=== PATIENT | male | born 1960 | race African-American/Black ===

== ENCOUNTER 2018-05-27 11:18 | Inpatient (IN) | payer OTHER ==
--- NOTE | 2018-05-27 12:43 | HP ---
CIWA Score - CIWA Score Nausea/Vomitin-Mild Nausea/No Vomiting Muscle Tremors: 4-Moderate,w/Arms Extend Anxiety: 4-Mod. Anxious/Guarded Agitation: 4-Moderately Restless Paroxysmal Sweats: 1-Minimal Palms Moist Orientation: 0-Oriented Tacttile Disturbances: 1-Very Mild Itch/Numbness Auditory Disturbances: 0-None Visual Disturbances: 0-None Headache: 1-Very Mild CIWA-Ar Total Score: 16 Admission [facility] - HPI Chief Complaint: alcohol withdrawal x Allergies/Adverse Reactions: Allergies Allergy/AdvReac Type Severity Reaction Status Date / Time No Known Drug Allergies Allergy Verified 05/27/18 12:42 NKDA Allergy Uncoded 05/27/18 12:42 History of Present Illness: 57 years old male with long history of alcohol dependence has depression and anxiety fell 05/24/18 due to alcohol intoxification right knee swell and pain ambulating steady gait 05/26/18 went to [facility] for detox forgot ID return home comes to [facility] for alcohol detox denies medical issue is admitted to detox Exam Limitations: No Limitations - Ebola screening Have you traveled outside of the country in the last 21 days: No Have you had contact with anyone from an Ebola affected area: No Have you been sick,other than usual withdrawal symptoms: No Do you have a fever: No - Review of Systems Constitutional: Loss of Appetite, Changes in sleep, Unintentional Wgt. Loss, Unexplained wgt Loss EENT: reports: Blurred Vision (need eye glasses) Respiratory: reports: No Symptoms reported Cardiac: reports: No Symptoms Reported GI: reports: Nausea, Poor Appetite, Poor Fluid Intake, Abdominal cramping : reports: No Symptoms Reported Musculoskeletal: reports: Joint Pain (right knee) Integumentary: reports: Rash (fungal feet) Neuro: reports: Tremors Endocrine: reports: No Symptoms Reported Hematology: reports: No Symptoms Reported Psychiatric: reports: Judgement Intact, Orientated x3, Anxious, Depressed Other Systems: Reviewed and Negative Patient History - Patient Medical History Hx Anemia: No Hx Asthma: No Hx Chronic Obstructive Pulmonary Disease (COPD): No Hx Cancer: No Hx Cardiac Disorders: No Hx Congestive Heart Failure: No Hx Hypertension: No Hx Hypercholesterolemia: No Hx Pacemaker: No HX Cerebrovascular Accident: No Hx Seizures: No Hx Dementia: No Hx Diabetes: No Hx Gastrointestinal Disorders: No Hx Liver Disease: No Hx Genitourinary Disorders: No Hx Sexually Transmitted Disorders: No Hx Renal Disease (ESRD): No Hx Thyroid Disease: No Hx Human Immunodeficiency Virus (HIV): No Hx Hepatitis C: No Hx Depression: Yes Hx Suicide Attempt: Yes (REMOTE) Hx Bipolar Disorder: No Hx Schizophrenia: No - Patient Surgical History Past Surgical History: No Hx Neurologic Surgery: No Hx Cataract Extraction: No Hx Cardiac Surgery: No Hx Lung Surgery: No Hx Breast Surgery: No Hx Breast Biopsy: No Hx Abdominal Surgery: No Hx Appendectomy: No Hx Cholecystectomy: No Hx Genitourinary Surgery: No Hx Orthopedic Surgery: No Other Surgical History: hemorrhoidectomy age 31 - PPD History Previous Implant?: Yes Documented Results: Positive w/o proof Implanted On Prior [facility] Admission?: No PPD to be Administered?: No - Smoking Cessation Smoking history: Former smoker Have you smoked in the past 12 months: No Aproximately how many cigarettes per day: 0 If you are a former smoker, when did you quit?: last cigarette smoke 11/2017 Cigars Per Day: 0 Hx Chewing Tobacco Use: No Initiated information on smoking cessation: No 'Breaking Loose' booklet given: 05/27/18 - Substance & Tx. History Hx Alcohol Use: Yes Substance Use Type: Cocaine, Tranquilizers Hx Substance Use Treatment: Yes ([facility]) Family Disease History - Family Disease History Family Disease History: Diabetes: Grandparent, Heart Disease: Father () Admission Physical Exam [facility] - Physical General Appearance: Yes: Appropriately Dressed, Mild Distress, Alcohol on Breath , Thin, Tremorous, Irritable, Sweating, Anxious HEENTM: Yes: Hearing grossly Normal, Normocephalic, Normal Voice Respiratory: Yes: Chest Non-Tender, Lungs Clear, Normal Breath Sounds, No Respiratory Distress, No Accessory Muscle Use Neck: Yes: Supple, Trachea in good position Breast: Yes: Breasts Symetrical, No Discharge Cardiology: Yes: Regular Rhythm, Regular Rate, S1, S2 Abdominal: Yes: Normal Bowel Sounds, Non Tender, Flat, Soft Genitourinary: Yes: Within Normal Limits Back: Yes: Normal Inspection Musculoskeletal: Yes: full range of Motion, Gait Steady, Muscle Pain (right knee ) Extremities: Yes: Normal Inspection, Normal Range of Motion, Non-Tender, Tremors Neurological: Yes: Fully Oriented, Alert, Motor Strength 5/5, Normal Response, Depressed Affect Integumentary: Yes: Warm Lymphatic: Yes: Within Normal Limits - Diagnostic (1) Positive PPD, treated Current Visit: Yes Status: Resolved (2) Dry skin Current Visit: Yes Status: Chronic (3) Fungal infection of foot Current Visit: Yes Status: Chronic Qualifiers: Laterality: bilateral Qualified Code(s): B35.3 - Tinea pedis (4) Alcohol dependence with uncomplicated withdrawal Current Visit: Yes Status: Acute Cleared for Admission [facility] - Detox or Rehab [facility] Level of Care: Medically Managed Detox Regimen/Protocol: Librium [facility] Breath Alcohol Content Breath Alcohol Content: 0 Urine Drug Screen - Control Is Test Valid: Yes
[2018-05-27] MEDS ORDERED: MAGNESIUM HYDROX 2400MG/30ML ORAL SUSPENSION 30 ML CUP PO PRN (12:49)
[2018-05-27] MEDS ORDERED: chlordiazePOXIDE HCL 25 MG CAPSULE PO PRN (12:49)
[2018-05-27] MEDS ORDERED: MAG HYDROX/AL HYDROX/SIMETH 30 ML UNIT-DOSE CUP PO PRN (12:49)
[2018-05-27] MEDS ORDERED: LOPERAMIDE HCL 2 MG CAPSULE PO PRN (12:49)
[2018-05-27] MEDS ORDERED: guaiFENesin/D-METHORPHAN HB 10 ML UNIT-DOSE CUPS PO PRN (12:49)
[2018-05-27] MEDS ORDERED: MENTHOL/PHENOL 1 EACH UD MM PRN (12:49)
[2018-05-27] MEDS ORDERED: MAGNESIUM CITRATE 300 ML BOTTLE PO PRN (12:49)
[2018-05-27] MEDS ORDERED: P-EPHED 60MG/TRIPROLIDI 2.5MG TABLET PO PRN (12:49)
[2018-05-27] MEDS ORDERED: ACETAMINOPHEN 325 MG TABLET (FP) PO PRN (12:49)
[2018-05-27 13:00] VITALS: BMI 22.6
[2018-05-27] MEDS: METHYL SALICYLATE/MENTHOL OINT 30 GM TUBE TP SCH ×2 (15:55→22:07)
[2018-05-27] MEDS: CLOTRIMAZOLE 1% CREAM 15 GM TUBE TP SCH ×2 (15:55→22:07)
[2018-05-27] MEDS: chlordiazePOXIDE HCL 25 MG CAPSULE PO SCH ×2 (17:18→22:06)
[2018-05-27 21:10] LABS: URINE APPEARANCE CLEAR; URINE BILIRUBIN NEGATIVE (<2.0 mg/dL); URINE COLOR YELLOW; URINE GLUCOSE (UA) NEGATIVE (NEGATIVE); URINE KETONE NEGATIVE (NEGATIVE); URINE LEUK ESTERASE NEGATIVE (NEGATIVE); URINE NITRITE NEGATIVE (NEGATIVE); URINE PROTEIN NEGATIVE (NEGATIVE); URINE UROBILINOGEN 4.0 E.U/dl mg/dL (0.2-1.0)
[2018-05-27] MEDS: MINERAL OIL/PETROLAT/WATER TOPICAL CREAM 113 GM JAR TP SCH (22:06)
[2018-05-27] MEDS: THIAMINE HCL 100 MG TABLET (FP) PO SCH (22:06)
[2018-05-27] MEDS: MELATONIN 5 MG TABLETS PO PRN (22:07)
[2018-05-28] MEDS: chlordiazePOXIDE HCL 25 MG CAPSULE PO SCH ×4 (05:40→22:41)
--- NOTE | 2018-05-28 09:18 | CONSULT ---
[facility] Psychiatric Consult - Data Date of interview: 05/28/18 Admission source: [facility] Identifying data: Patient is a 57 year old single male, father of one, unemployed (denies receiving financial assistance), and currently homeless. This is one of multiple admissions for patient. Pt. admitted for alcohol dependence. Substance Abuse History: Smoking Cessation. Smoking history: Former smoker. Have you smoked in the past 12 months: No. Aproximately how many cigarettes per day: 0. If you are a former smoker, when did you quit?: last cigarette smoke 11/2017. Cigars Per Day: 0. Hx Chewing Tobacco Use: No. Initiated information on smoking cessation: No. 'Breaking Loose' booklet given: . - Substance & Tx. History. Hx Alcohol Use: Yes. Substance Use Type: Cocaine, Tranquilizers. Hx Substance Use Treatment: Yes (2015 [facility]) Medical History: hemorrhoidectomy age 31 Psychiatric History: Patient denies h/o psychiatric hospitalization, and outpatient care. Patient reports nonadherence to OPD. States he was tried on lexapro and trazodone but discontined medication on his own. As per Dr. Kunz entry on 01/20/16 patient reported h/o two psychiatric hospitalization at [facility] and [facility]. Pt. requesting trazodone for insomnia. Physical/Sexual Abuse/Trauma History: Denies. Mental Status Exam - Mental Status Exam Alert and Oriented to: Time, Place, Person Cognitive Function: Good Patient Appearance: Well Groomed Mood: Euthymic Affect: Mood Congruent Patient Behavior: Appropriate, Cooperative Speech Pattern: Clear, Appropriate Voice Loudness: Normal Thought Process: Intact, Goal Oriented Thought Disorder: Not Present Hallucinations: Denies Suicidal Ideation: Denies Homicidal Ideation: Denies Insight/Judgement: Poor Sleep: Poorly Appetite: Fair Muscle strength/Tone: Normal Gait/Station: Normal Psychiatric Findings - Problem List ([place] 1, 2,3) (1) Insomnia Current Visit: Yes Status: Acute (2) Alcohol dependence with uncomplicated withdrawal Current Visit: Yes Status: Acute - Initial Treatment Plan Initial Treatment Plan: Psychoeducation provided. Detoxification in progress. Trazodone 50mg qhs. Benefits and side effects discussed. Benefits and side effects discussed. Pt. made aware of the risk of priapism. Verbal consent given.
--- NOTE | 2018-05-28 10:08 | EKG ---
Test Reason : Blood Pressure : / mmHG Vent. Rate : 068 BPM Atrial Rate : 068 BPM P-R Int : 136 ms QRS Dur : 088 ms QT Int : 390 ms P-R-T Axes : 070 064 070 degrees QTc Int : 414 ms NORMAL SINUS RHYTHM MINIMAL VOLTAGE CRITERIA FOR LVH, MAY BE NORMAL VARIANT BORDERLINE ECG NO PREVIOUS ECGS AVAILABLE Confirmed by KIM LUGO MD ([id number]) on 05/28/2018 10:08:34 AM Referred By: Confirmed By:KIM LUGO MD
[2018-05-28 10:12] LABS: CHLORIDE 105 mmol/L (98-107); HEMATOCRIT 38.2 % (35.4-49); HEMOGLOBIN 12.9 GM/dL (11.7-16.9); MCH 33.1 pg (25.7-33.7); MCHC 33.9 g/dl (32.0-35.9); MEAN CELL VOLUME 97.5 fl (80-96); MEAN PLT VOLUME 9.2 fl (7.5-11.1); PLATELET COUNT 256 K/MM3 (134-434); POTASSIUM 4.2 mmol/L (3.5-5.1); RBC 3.91 M/mm3 (4.00-5.60); RDW 15.6 % (11.9-15.9); SODIUM 142 mmol/L (136-145); WHITE BLOOD COUNT 3.8 K/mm3 (4.0-10.0)
[2018-05-28 10:26] LABS: ALBUMIN 3.8 g/dl (3.4-5.0); ALK PHOS 83 U/L (45-117); ANION GAP 11 (8-16); BILIRUBIN,TOTAL 0.6 mg/dL (0.2-1.0); BLOOD UREA NITROGEN 12 mg/dL (7-18); CALCIUM 9.3 mg/dL (8.5-10.1); CO2 26 mmol/L (21-32); GLUCOSE,RANDOM 77 mg/dL (74-106); SGOT/AST 66 U/L (15-37); SGPT/ALT 60 U/L (12-78); TOT PROT 7.2 g/dl (6.4-8.2)
[2018-05-28] MEDS: PRENATAL VITAMINS W/ FOLIC ACID TABLET (FP) PO SCH (10:41)
[2018-05-28] MEDS: METHYL SALICYLATE/MENTHOL OINT 30 GM TUBE TP SCH ×2 (10:41→22:41)
[2018-05-28] MEDS: CLOTRIMAZOLE 1% CREAM 15 GM TUBE TP SCH ×2 (10:42→22:42)
--- NOTE | 2018-05-28 12:47 | PN ---
[facility] CIWA - CIWA Score Nausea/Vomitin-No Nausea/No Vomiting Muscle Tremors: 2 Anxiety: 5 Agitation: 4-Moderately Restless Paroxysmal Sweats: 2 Orientation: 2-Disoriented Date<2 days Tacttile Disturbances: 2-Mild Itch/Numbness/Burn Auditory Disturbances: 0-None Visual Disturbances: 0-None Headache: 0-None Present CIWA-Ar Total Score: 17 BHS Progress Note (SOAP) Subjective: Sweating, Constipation, Anxious, Body Aches. Objective: PATIENT A & O X 2 (UNCERTAIN ABOUT CURRENT DAY / DATE). PATIENT OBSERVED AMBULATING ON UNIT. NO ACUTE DISTRESS. RESULT OF CXR (HISTORY OF POSITIVE PPD) NOTED. 05/28/18 12:44 Vital Signs Temperature 98.4 F 05/28/18 09:06 Pulse Rate 71 05/28/18 09:06 Respiratory Rate 18 05/28/18 09:06 Blood Pressure 113/61 05/28/18 09:06 O2 Sat by Pulse Oximetry (%) Laboratory Tests 05/27/18 05/27/18 05/28/18 13:00 20:30 05:45 WBC 3.8 L RBC 3.91 L Hgb 12.9 Hct 38.2 MCV 97.5 H MCH 33.1 MCHC 33.9 RDW 15.6 Plt Count 256 D MPV 9.2 Sodium Potassium Chloride Carbon Dioxide Anion Gap BUN Creatinine Creat Clearance w eGFR Random Glucose Calcium Total Bilirubin AST ALT Alkaline Phosphatase Total Protein Albumin Urine Color Yellow Urine Appearance Clear Urine pH 6.0 Ur Specific [place] 1.021 Urine Protein Negative Urine Glucose (UA) Negative Urine Ketones Negative Urine Blood Negative Urine Nitrite Negative Urine Bilirubin Negative Urine Urobilinogen 4.0 e.u/dl Ur Leukocyte Esterase Negative RPR Titer HIV 1&2 Antibody Screen Negative HIV P24 Antigen Negative 05/28/18 05/28/18 05:45 05:45 WBC RBC Hgb Hct MCV MCH MCHC RDW Plt Count MPV Sodium 142 Potassium 4.2 Chloride 105 Carbon Dioxide 26 Anion Gap 11 BUN 12 Creatinine 1.0 Creat Clearance w eGFR > 60 Random Glucose 77 D Calcium 9.3 Total Bilirubin 0.6 AST 66 H ALT 60 D Alkaline Phosphatase 83 Total Protein 7.2 Albumin 3.8 Urine Color Urine Appearance Urine pH Ur Specific [place] Urine Protein Urine Glucose (UA) Urine Ketones Urine Blood Urine Nitrite Urine Bilirubin Urine Urobilinogen Ur Leukocyte Esterase RPR Titer Nonreactive HIV 1&2 Antibody Screen HIV P24 Antigen LABS NOTED. 05/28/18 12:46 Assessment: 05/28/18 12:45 WITHDRAWAL SYMPTOMS. Plan: CONTINUE DETOX. INCREASE DAILY PO FLUID INTAKE. PRN MOM FOR CONSTIPATION.
[2018-05-28] MEDS: IBUPROFEN 400 MG TABLET (FP) PO PRN (16:28)
[2018-05-28] MEDS: traZODone HCL 50 MG TABLET (FP) PO SCH (22:41)
[2018-05-28] MEDS: THIAMINE HCL 100 MG TABLET (FP) PO SCH (22:41)
[2018-05-28] MEDS: MINERAL OIL/PETROLAT/WATER TOPICAL CREAM 113 GM JAR TP SCH (22:42)
[2018-05-29] MEDS: chlordiazePOXIDE HCL 25 MG CAPSULE PO SCH ×2 (05:40→10:30)
[2018-05-29] MEDS: PRENATAL VITAMINS W/ FOLIC ACID TABLET (FP) PO SCH (10:30)
[2018-05-29] MEDS: CLOTRIMAZOLE 1% CREAM 15 GM TUBE TP SCH ×2 (10:30→22:38)
[2018-05-29] MEDS: METHYL SALICYLATE/MENTHOL OINT 30 GM TUBE TP SCH ×2 (10:30→22:37)
--- NOTE | 2018-05-29 11:52 | PN ---
[facility] CIWA - CIWA Score Nausea/Vomitin-No Nausea/No Vomiting Muscle Tremors: None Anxiety: 3 Agitation: 3 Paroxysmal Sweats: 3 Orientation: 2-Disoriented Date<2 days Tacttile Disturbances: 2-Mild Itch/Numbness/Burn Auditory Disturbances: 0-None Visual Disturbances: 0-None Headache: 0-None Present CIWA-Ar Total Score: 13 S Progress Note (SOAP) Subjective: Fatigue, Sweating, Body Aches. Objective: PATIENT A & O X 2 (UNCERTAIN ABOUT CURRENT DAY / DATE). PATIENT OBSERVED AMBULATING ON UNIT. NO ACUTE DISTRESS. 05/29/18 11:49 Vital Signs Temperature 97.5 F L 05/29/18 10:32 Pulse Rate 59 L 05/29/18 10:32 Respiratory Rate 18 05/29/18 10:32 Blood Pressure 99/59 05/29/18 10:32 O2 Sat by Pulse Oximetry (%) Laboratory Tests 05/27/18 05/27/18 05/27/18 13:00 13:00 20:30 WBC RBC Hgb Hct MCV MCH MCHC RDW Plt Count MPV Sodium Potassium Chloride Carbon Dioxide Anion Gap BUN Creatinine Creat Clearance w eGFR Random Glucose Calcium Total Bilirubin AST ALT Alkaline Phosphatase Total Protein Albumin Urine Color Yellow Urine Appearance Clear Urine pH 6.0 Ur Specific [place] 1.021 Urine Protein Negative Urine Glucose (UA) Negative Urine Ketones Negative Urine Blood Negative Urine Nitrite Negative Urine Bilirubin Negative Urine Urobilinogen 4.0 e.u/dl Ur Leukocyte Esterase Negative RPR Titer Hep C Ab Diagnostic <0.1 Liver Fibrosis Interp HIV 1&2 Antibody Screen Negative HIV P24 Antigen Negative 05/28/18 05/28/18 05/28/18 05:45 05:45 05:45 WBC 3.8 L RBC 3.91 L Hgb 12.9 Hct 38.2 MCV 97.5 H MCH 33.1 MCHC 33.9 RDW 15.6 Plt Count 256 D MPV 9.2 Sodium 142 Potassium 4.2 Chloride 105 Carbon Dioxide 26 Anion Gap 11 BUN 12 Creatinine 1.0 Creat Clearance w eGFR > 60 Random Glucose 77 D Calcium 9.3 Total Bilirubin 0.6 AST 66 H ALT 60 D Alkaline Phosphatase 83 Total Protein 7.2 Albumin 3.8 Urine Color Urine Appearance Urine pH Ur Specific [place] Urine Protein Urine Glucose (UA) Urine Ketones Urine Blood Urine Nitrite Urine Bilirubin Urine Urobilinogen Ur Leukocyte Esterase RPR Titer Nonreactive Hep C Ab Diagnostic Liver Fibrosis Interp HIV 1&2 Antibody Screen HIV P24 Antigen LABS NOTED. Assessment: 05/29/18 11:50 WITHDRAWAL SYMPTOMS. Plan: CONTINUE DETOX. PATIENT REPORTS THAT HE IS TOLERATING CURRENT WITHDRAWAL SYMPTOMS RELATIVELY WELL. AT PATIENT'S REQUEST, DETOX MEDICATION REGIMEN (LIBRIUM) MODIFIED SO THAT PATIENT MAY BE DISCHARGED TOMORROW, 05/30/2018.
[2018-05-29] MEDS ORDERED: chlordiazePOXIDE 5 MG CAPSULE PO SCH (17:00)
[2018-05-29] MEDS: IBUPROFEN 400 MG TABLET (FP) PO PRN (17:40)
[2018-05-29] MEDS: MELATONIN 5 MG TABLETS PO PRN (22:25)
[2018-05-29] MEDS: traZODone HCL 50 MG TABLET (FP) PO SCH (22:25)
[2018-05-29] MEDS: THIAMINE HCL 100 MG TABLET (FP) PO SCH (22:25)
[2018-05-29] MEDS: MINERAL OIL/PETROLAT/WATER TOPICAL CREAM 113 GM JAR TP SCH (22:38)
[2018-05-29] MEDS ORDERED: chlordiazePOXIDE HCL 10 MG CAPSULE PO SCH (23:00)
[2018-05-30 06:27] VITALS: BP 99/55; PULSE 71; TEMP 97.5
[2018-05-30] MEDS ORDERED: chlordiazePOXIDE HCL 10 MG CAPSULE PO SCH (17:00)
--- NOTE | 2018-05-30 21:29 | PN ---
[facility] Progress Note (SOAP) Subjective: Patient left Detox unit prior to arrival of [facility]. Objective: 05/30/18 21:27 Vital Signs Temperature 97.5 F L 05/30/18 06:25 Pulse Rate 71 05/30/18 06:25 Respiratory Rate 18 05/30/18 06:25 Blood Pressure 99/55 05/30/18 06:25 O2 Sat by Pulse Oximetry (%) Laboratory Tests 05/27/18 05/27/18 05/27/18 13:00 13:00 20:30 WBC RBC Hgb Hct MCV MCH MCHC RDW Plt Count MPV Sodium Potassium Chloride Carbon Dioxide Anion Gap BUN Creatinine Creat Clearance w eGFR Random Glucose Calcium Total Bilirubin AST ALT Alkaline Phosphatase Total Protein Albumin Urine Color Yellow Urine Appearance Clear Urine pH 6.0 Ur Specific [place] 1.021 Urine Protein Negative Urine Glucose (UA) Negative Urine Ketones Negative Urine Blood Negative Urine Nitrite Negative Urine Bilirubin Negative Urine Urobilinogen 4.0 e.u/dl Ur Leukocyte Esterase Negative RPR Titer Hep C Ab Diagnostic <0.1 Hepatitis C RNA No Result Required. Liver Fibrosis Interp HIV 1&2 Antibody Screen Negative HIV P24 Antigen Negative 05/28/18 05/28/18 05/28/18 05:45 05:45 05:45 WBC 3.8 L RBC 3.91 L Hgb 12.9 Hct 38.2 MCV 97.5 H MCH 33.1 MCHC 33.9 RDW 15.6 Plt Count 256 D MPV 9.2 Sodium 142 Potassium 4.2 Chloride 105 Carbon Dioxide 26 Anion Gap 11 BUN 12 Creatinine 1.0 Creat Clearance w eGFR > 60 Random Glucose 77 D Calcium 9.3 Total Bilirubin 0.6 AST 66 H ALT 60 D Alkaline Phosphatase 83 Total Protein 7.2 Albumin 3.8 Urine Color Urine Appearance Urine pH Ur Specific [place] Urine Protein Urine Glucose (UA) Urine Ketones Urine Blood Urine Nitrite Urine Bilirubin Urine Urobilinogen Ur Leukocyte Esterase RPR Titer Nonreactive Hep C Ab Diagnostic Hepatitis C RNA Liver Fibrosis Interp HIV 1&2 Antibody Screen HIV P24 Antigen LABS NOTED. Assessment: 05/30/18 21:28 COMPLETION OF DETOX REGIMEN. Plan: PATIENT SCHEDULED FOR DISCHARGE FROM DETOX UNIT TODAY.
--- NOTE | 2018-05-30 21:35 | DS ---
[facility] Detox Discharge Summary Admission Date: 05/27/18 Discharge Date: 05/30/18 - History Present History: Alcohol Dependence Additional Comments: PATIENT GOING TO [facility] ([facility]) FOR AFTERCARE. DISCHARGE ASSESSMENT UNABLE TO BE DONE BECAUSE PATIENT LEFT DETOX UNIT BEFORE TIME OF ARRIVAL OF NURSE PRACTITIONER ON UNIT. Pertinent Past History: History of Fungal Infection of Feet, History of Positive PPD (Treated), History of Depression, Dry Skin, Insomnia. - Physical Exam Results Vital Signs: Vital Signs Temperature 97.5 F L 05/30/18 06:25 Pulse Rate 71 05/30/18 06:25 Respiratory Rate 18 05/30/18 06:25 Blood Pressure 99/55 05/30/18 06:25 O2 Sat by Pulse Oximetry (%) Pertinent Admission Physical Exam Findings: WITHDRAWAL SYMPTOMS. Laboratory Tests 05/27/18 05/27/18 05/27/18 13:00 13:00 20:30 WBC RBC Hgb Hct MCV MCH MCHC RDW Plt Count MPV Sodium Potassium Chloride Carbon Dioxide Anion Gap BUN Creatinine Creat Clearance w eGFR Random Glucose Calcium Total Bilirubin AST ALT Alkaline Phosphatase Total Protein Albumin Urine Color Yellow Urine Appearance Clear Urine pH 6.0 Ur Specific [place] 1.021 Urine Protein Negative Urine Glucose (UA) Negative Urine Ketones Negative Urine Blood Negative Urine Nitrite Negative Urine Bilirubin Negative Urine Urobilinogen 4.0 e.u/dl Ur Leukocyte Esterase Negative RPR Titer Hep C Ab Diagnostic <0.1 Hepatitis C RNA No Result Required. Liver Fibrosis Interp HIV 1&2 Antibody Screen Negative HIV P24 Antigen Negative 05/28/18 05/28/18 05/28/18 05:45 05:45 05:45 WBC 3.8 L RBC 3.91 L Hgb 12.9 Hct 38.2 MCV 97.5 H MCH 33.1 MCHC 33.9 RDW 15.6 Plt Count 256 D MPV 9.2 Sodium 142 Potassium 4.2 Chloride 105 Carbon Dioxide 26 Anion Gap 11 BUN 12 Creatinine 1.0 Creat Clearance w eGFR > 60 Random Glucose 77 D Calcium 9.3 Total Bilirubin 0.6 AST 66 H ALT 60 D Alkaline Phosphatase 83 Total Protein 7.2 Albumin 3.8 Urine Color Urine Appearance Urine pH Ur Specific [place] Urine Protein Urine Glucose (UA) Urine Ketones Urine Blood Urine Nitrite Urine Bilirubin Urine Urobilinogen Ur Leukocyte Esterase RPR Titer Nonreactive Hep C Ab Diagnostic Hepatitis C RNA Liver Fibrosis Interp HIV 1&2 Antibody Screen HIV P24 Antigen LABS NOTED. - Treatment Hospital Course: Detox Protocol Followed, Detoxed Safely, Responded well, Discharged Condition Good Patient has Accepted a Rehab Referral to: [facility] ([facility]). - Medication Discharge Medications: Ambulatory Orders traZODone HCL [Desyrel -] 50 mg PO HS #30 tablet 01/17/16 Escitalopram Oxalate [Lexapro -] 20 mg PO DAILY #30 tablet 02/15/16 - Diagnosis (1) Alcohol dependence with uncomplicated withdrawal Status: Acute (2) Dry skin Status: Chronic (3) Fungal infection of foot Status: Chronic Qualifiers: Laterality: bilateral Qualified Code(s): B35.3 - Tinea pedis (4) Positive PPD, treated Status: Resolved (5) Insomnia Status: Acute Qualifiers: Insomnia type: unspecified Qualified Code(s): G47.00 - Insomnia, unspecified - AMA Did Patient Leave Against Medical Advice: No
== END 2018-05-30 07:30 | disposition home or self-care (01) | DRG 775 ==
LOC: YASAS 11:18 → Y3N 13:17
PROVIDERS: ADMIT Surgery; ATTEND Surgery
PROC: HZ2ZZZZ Detoxification Services for Substance Abuse Treatment (ICD-10-PCS; principal; 2018-05-27)
DX: F10.230 Alcohol dependence with withdrawal, uncomplicated (principal); G47.00 Insomnia, unspecified; B35.3 Tinea pedis; R76.11 Nonspecific reaction to tuberculin skin test without active tuberculosis; Z91.5 Personal history of self-harm
CPT/HCPCS: 36415; 71046-TC-FY; 80053; 81003; 85027; 86593; 86803; 87389; 93005; 93010

== ENCOUNTER 2020-07-29 18:23 | Inpatient (IN) | payer OTHER ==
--- OUTSIDE RECORDS SUMMARY | 2020-07-29 18:29 | XMS ---
:1960 [facility] Care Team Providers Name Role Phone OUTREACH, CAROL Unavailable Unavailable Re-disclosure Warning The records that you are about to access may contain information from federally- assisted alcohol or drug abuse programs. If such information is present, then the following federally mandated warning applies: This information has been disclosed to you from records protected by federal confidentiality rules (42 CFR part 2). The federal rules prohibit you from making any further disclosure of this information unless further disclosure is expressly permitted by the written consent of the person to whom it pertains or as otherwise permitted by 42 CFR part 2. A general authorization for the release of medical or other information is NOT sufficient for this purpose. The Federal rules restrict any use of the information to criminally investigate or prosecute any alcohol or drug abuse patient.The records that you are about to access may contain highly sensitive health information, the redisclosure of which is protected by Article 27-F of the [place] State Public Health law. If you continue you may haveaccess to information: Regarding HIV / AIDS; Provided by facilities licensed or operated by the [facility] Office of Mental Health; or Provided by the [facility] Office for People With Developmental Disabilities. If such information is present, then the following [facility] mandated warning applies: This information has been disclosed to you from confidential records which are protected by state law. State law prohibits you from making any further disclosure of this information without the specific written consent of the person to whom it pertains, or as otherwise permitted by law. Any unauthorized further disclosure in violation of state law may result in a fine or alf sentence or both. A general authorization for the release of medical or other information is NOT sufficient authorization for further disclosure. Encounters Encounter Providers Location Date Indications Data Source(s ) Outpatient Attender: CAROL 03/15/2020 [facility] For OUTREACH 10:26:38 AM Family Health EDT Patient admitted. Insurance Providers Payer name Policy type Policy ID Covered Covered constitution party's Policy P yolanda / Coverage constitution party ID relationship to Gonzalez Inf ormation type gonzalez [employer] [id number] Self [id number] [employer] [id number] Self [id number] [employer] [id number] Self [id number] Problems, Conditions, and Diagnoses Code Display Name Description Problem Type Effective Dates Data Source(s) Emergency Room Emergency Room Diagnosis 03/15/2020 [facility] Visit Follow Up Visit Follow Up 10:26:38 AM EDT For [facility] Results ID Date Data Source [id number] 03/18/2020 12:00:00 AM EDT [facility] Name Value Range Interpretation Description Data Sup porting Code Source(s) Document(s ) SARS [facility] CORONAVIRUS 2 RNA This lab was ordered by [employer] and reported by [facility]. ID Date Data Source [id number] 01/20/2020 01:49:00 PM EDT [facility] Name Value Range Interpretation Code Description Data Christina rce(s) Supporting Document(s ) SARS Cov2 [facility] RNA This lab was ordered by MIGUEL BUCK [address] and reported by [facility]. Procedure Social History Code Duration Value Status Description Data Source(s ) Sex assigned at Not on file Not on file [facility] Tobacco smoking status NHIS Unknown if ever smoked [facility]
--- NOTE | 2020-07-29 22:08 | BHS.RME ---
Substance Use & Tx History - Substance Use History Alcohol Substance amount: 5 pints of Vodka Frequency of use: Daily Substance route: Oral Date of Last Use: 07/28/20 - Last Treatment Date of last treatment: 05/27/2018-05/30/2018 Where was last treatment: Detox Physical/Psych/Mental Status - Behavior Eye Contact: Normal - Cooperativeness Cooperativeness: Cooperative - Thinking Thought Processes: Logical Thought content: Future oriented - Physical Health Problems Is patient presently having any pain?: No Does patient presently have any injuries (include location): No Does patient currently have a fever: No CIWA Nausea/Vomitin Muscle Tremors: 4-Moderate,w/Arms Extend Anxiety: 4-Mod. Anxious/Guarded Agitation: 3 Paroxysmal Sweats: 2 Orientation: 0-Oriented Tacttile Disturbances: 0-None Auditory Disturbances: 0-None Visual Disturbances: 0-None Headache: 3-Moderate CIWA-Ar Total Score: 18 Treatment Recommendation - Level of Care Level of Care: Opioid Treatment Program (OTP) (Alcohol detoxification)
[2020-07-29 22:15] VITALS: BMI 23.5
--- NOTE | 2020-07-29 22:47 | HP ---
CIWA Score Nausea/Vomitin Muscle Tremors: 4-Moderate,w/Arms Extend Anxiety: 4-Mod. Anxious/Guarded Agitation: 3 Paroxysmal Sweats: 2 Orientation: 0-Oriented Tacttile Disturbances: 0-None Auditory Disturbances: 0-None Visual Disturbances: 0-None Headache: 3-Moderate CIWA-Ar Total Score: 18 - Admission Criteria [facility]ASAS Guidelines: Admission for Medically Managed Detox: Requires at least one of the followin. CIWA greater than 12 2. Seizures within the past 24 hours 3. Delirium tremens within the past 24 hours 4. Hallucinations within the past 24 hours 5. Acute intervention needed for co occurring medical disorder 6. Acute intervention needed for co occurring psychiatric disorder 7. Severe withdrawal that cannot be handled at a lower level of care (continued vomiting, continued diarrhea, abnormal vital signs) requiring intravenous medication and/or fluids 8. Admitting History and Physical - Smoking History Smoking history: Former smoker Have you smoked in the past 12 months: No Aproximately how many cigarettes per day: 0 If you are a former smoker, when did you quit?: last cigarette smoke 11/2017 - Alcohol/Substance Use Hx Alcohol Use: Yes Admission ROS [facility] Chief Complaint: Alcohol withdrawal symptoms Allergies/Adverse Reactions: Allergies Allergy/AdvReac Type Severity Reaction Status Date / Time No Known Drug Allergies Allergy Verified 07/29/20 22:42 NKDA Allergy Uncoded 07/29/20 22:42 History of Present Illness: 60 years old male with a long history of alcohol dependence is seeking admission to detox. His last admission to [facility] was for the period 05/27/2018 - 05/30/2018 and he reports that he relapsed in August 2020. He reports that he drinks 5 pints of vodka and 10 bottles of 40oz. beer daily. He has medical history of PPD positive, psych. history of depression, bipolar disorder, insomnia and he denies suicidal ideation at this time. He is unemployed, homeless and he denies legal issues. 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 Exam Limitations: No Limitations - Ebola screening Have you traveled outside of the country in the last 21 days: No Have you had contact with anyone from an Ebola affected area: No Have you been sick,other than usual withdrawal symptoms: No Do you have a fever: No - Review of Systems Constitutional: Chills, Malaise, Changes in sleep EENT: reports: No Symptoms Reported Respiratory: reports: No Symptoms reported Cardiac: reports: No Symptoms Reported GI: reports: Nausea, Poor Appetite, Poor Fluid Intake, Abdominal cramping : reports: No Symptoms Reported Musculoskeletal: reports: Muscle Pain, Other (right knee pain) Integumentary: reports: Dryness, Flushing Neuro: reports: Headache, Tremors Endocrine: reports: No Symptoms Reported Hematology: reports: No Symptoms Reported Psychiatric: reports: Orientated x3, Anxious, Depressed Other Systems: Reviewed and Negative Patient History - Patient Medical History Hx Anemia: No Hx Asthma: No Hx Chronic Obstructive Pulmonary Disease (COPD): No Hx Cancer: No Hx Cardiac Disorders: No Hx Congestive Heart Failure: No Hx Hypertension: No Hx Hypercholesterolemia: No Hx Pacemaker: No HX Cerebrovascular Accident: No Hx Seizures: No Hx Dementia: No Hx Diabetes: No Hx Gastrointestinal Disorders: No Hx Liver Disease: No Hx Genitourinary Disorders: No Hx Sexually Transmitted Disorders: No Hx Renal Disease (ESRD): No Hx Thyroid Disease: No Hx Human Immunodeficiency Virus (HIV): No (Negative 2019) Hx Hepatitis C: No Hx Depression: Yes (Not on medication) Hx Suicide Attempt: Yes (Denies suicidal ideation at this time) Hx Bipolar Disorder: No Hx Schizophrenia: No Other Medical History: PPD POSITIVE - Patient Surgical History Past Surgical History: Yes Hx Neurologic Surgery: No Hx Cataract Extraction: No Hx Cardiac Surgery: No Hx Lung Surgery: No Hx Breast Surgery: No Hx Breast Biopsy: No Hx Abdominal Surgery: No Hx Appendectomy: No Hx Cholecystectomy: No Hx Genitourinary Surgery: No Hx Section: No Hx Orthopedic Surgery: No Other Surgical History: hemorrhoidectomy age 31 Anesthesia Reaction: No - PPD History Previous Implant?: Yes (PPD POSITIVE) Documented Results: Positive w/o proof Implanted On Prior R Admission?: No PPD to be Administered?: No - Reproductive History Patient is a Female of Child Bearing Age (11 -55 yrs old): No (Male) - Smoking Cessation Smoking history: Former smoker Have you smoked in the past 12 months: No Hx Chewing Tobacco Use: No Initiated information on smoking cessation: No - Substance & Tx. History Hx Alcohol Use: Yes Hx Substance Use: Yes Substance Use Type: Alcohol, Cocaine Hx Substance Use Treatment: Yes ([facility]) - Substances abused Alcohol Substance route: Oral Frequency: Daily Amount used: 5 pints of vodka and 10 bottles of 40oz. beer Age of first use: 20 Date of last use: 07/28/20 Admission Physical Exam [facility] - Vital Signs Vital Signs: Vital Signs - 24 hr 07/29/20 22:14 Temperature 97.7 F Pulse Rate 88 Respiratory 18 Rate Blood Pressure 134/93 - Physical General Appearance: Yes: Moderate Distress, Tremorous, Sweating, Anxious HEENTM: Yes: Within Normal Limits Respiratory: Yes: Lungs Clear, Normal Breath Sounds, No Respiratory Distress Neck: Yes: Within Normal Limits Breast: Yes: Breast Exam Deferred Cardiology: Yes: Regular Rhythm, Regular Rate Abdominal: Yes: Normal Bowel Sounds, Soft Genitourinary: Yes: Within Normal Limits Back: Yes: Normal Inspection Musculoskeletal: Yes: Back pain, Other (right knne pain) Extremities: Yes: Tremors Integumentary: Yes: Within Normal Limits Lymphatic: Yes: Within Normal Limits - Diagnostic (1) Alcohol dependence with uncomplicated withdrawal Current Visit: Yes Status: Acute (2) Cocaine dependence Current Visit: Yes Status: Chronic Qualifiers: Substance use status: uncomplicated Qualified Code(s): F14.20 - Cocaine de pendence, uncomplicated (3) Depression (emotion) Current Visit: Yes Status: Chronic (4) Insomnia Current Visit: Yes Status: Chronic Qualifiers: Insomnia type: unspecified Qualified Code(s): G47.00 - Insomnia, unspecified (5) Dry skin Current Visit: Yes Status: Chronic (6) Positive PPD, treated Current Visit: Yes Status: Chronic Cleared for Admission [facility] - Detox or Rehab [facility] Level of Care: Medically Managed Detox Regimen/Protocol: Marloium Claeared for Rehab Admission: No Breathalyzer - Breathalyzer Breathalyzer: 0.063 Urine Drug Screen - Test Device Lot number: [id number] Expiration date: 02/09/22 - Control Is test valid?: Yes - Results Drug screen NEGATIVE: No Urine drug screen results: JOE-Cocaine, BAR-Barbiturates, BZO-Benzodiazepines Inpatient Rehab Admission - Rehab Decision to Admit Inpatient rehab admission?: No
[2020-07-29] MEDS ORDERED: MENTHOL/PHENOL 1 EACH UD MM PRN (23:01)
[2020-07-29] MEDS ORDERED: IBUPROFEN 400 MG TABLET (FP) PO PRN (23:01)
[2020-07-29] MEDS ORDERED: ONDANSETRON *ODT* 4 MG TABLET SL PRN (23:01)
[2020-07-29] MEDS ORDERED: MAGNESIUM CITRATE 300 ML BOTTLE PO PRN (23:01)
[2020-07-29] MEDS ORDERED: chlordiazePOXIDE HCL 25 MG CAPSULE PO PRN (23:01)
[2020-07-29] MEDS ORDERED: ACETAMINOPHEN 325 MG TABLET (FP) PO PRN ×2 (23:01)
[2020-07-29] MEDS ORDERED: MAG HYDROX/AL HYDROX/SIMETH 30 ML UNIT-DOSE CUP PO PRN (23:01)
[2020-07-29] MEDS ORDERED: MAGNESIUM HYDROX 2400MG/30ML ORAL SUSPENSION 30 ML CUP PO PRN (23:01)
[2020-07-29] MEDS ORDERED: BISMUTH SUBSALICYLATE 524 MG/30 ML UD PO PRN (23:01)
[2020-07-29] MEDS: chlordiazePOXIDE HCL 25 MG CAPSULE PO SCH (23:34)
[2020-07-29] MEDS: METHOCARBAMOL 500 MG TABLET PO PRN (23:36)
[2020-07-30] MEDS: chlordiazePOXIDE HCL 25 MG CAPSULE PO SCH ×4 (06:26→23:06)
[2020-07-30] MEDS: PRENATAL VITAMINS W/ FOLIC ACID TABLET (FP) PO SCH (11:07)
[2020-07-30] MEDS: ARTIFICIAL TEARS (POLYVINYL ALCOHOL) OPTH DROPS OU SCH ×2 (11:07→23:06)
[2020-07-30 11:48] LABS: HEMATOCRIT 34.5 % (35.4-49); HEMOGLOBIN 11.7 GM/dL (11.7-16.9); MCH 33.8 pg (25.7-33.7); MCHC 33.9 g/dl (32.0-35.9); MEAN CELL VOLUME 99.7 fl (80-96); MEAN PLT VOLUME 8.8 fl (7.5-11.1); PLATELET COUNT 222 K/MM3 (134-434); RBC 3.46 M/mm3 (4.00-5.60); RDW 15.5 % (11.9-15.9); WHITE BLOOD COUNT 6.9 K/mm3 (4.0-10.0)
[2020-07-30 12:04] LABS: ALBUMIN 3.4 g/dl (3.4-5.0); BLOOD UREA NITROGEN 11.4 mg/dL (7-18); CALCIUM 8.7 mg/dL (8.5-10.1); CREATININE 0.9 mg/dL (0.55-1.3); POTASSIUM 4.1 mmol/L (3.5-5.1)
[2020-07-30 12:14] LABS: BILIRUBIN,TOTAL 0.5 mg/dL (0.2-1); TOT PROT 6.6 g/dl (6.4-8.2)
--- NOTE | 2020-07-30 12:32 | PN ---
S CIWA - CIWA Score Nausea/Vomitin-No Nausea/No Vomiting Muscle Tremors: 2 Anxiety: 3 Agitation: 1-Slight > Activity Paroxysmal Sweats: 3 Orientation: 0-Oriented Tacttile Disturbances: 0-None Auditory Disturbances: 0-None Visual Disturbances: 0-None Headache: 2-Mild CIWA-Ar Total Score: 11 S Progress Note (SOAP) Subjective: c/o sweats, shakes, anxiety, and headache. Objective: 07/30/20 12:31 Vital Signs 07/30/20 07/30/20 06:44 09:07 Temperature 98.9 F 97.1 F L Pulse Rate 97 H 103 H Respiratory 18 18 Rate Blood Pressure 127/71 124/78 O2 Sat by Pulse 96 Oximetry (%) Laboratory Last Values WBC 6.9 K/mm3 (4.0-10.0) 07/30/20 07:50 RBC 3.46 M/mm3 (4.00-5.60) L 07/30/20 07:50 Hgb 11.7 GM/dL (11.7-16.9) 07/30/20 07:50 Hct 34.5 % (35.4-49) L 07/30/20 07:50 MCV 99.7 fl (80-96) H 07/30/20 07:50 MCH 33.8 pg (25.7-33.7) H 07/30/20 07:50 MCHC 33.9 g/dl (32.0-35.9) 07/30/20 07:50 RDW 15.5 % (11.9-15.9) 07/30/20 07:50 Plt Count 222 K/MM3 (134-434) 07/30/20 07:50 MPV 8.8 fl (7.5-11.1) 07/30/20 07:50 Sodium 137 mmol/L (136-145) 07/30/20 07:50 Potassium 4.1 mmol/L (3.5-5.1) 07/30/20 07:50 Chloride 105 mmol/L (98-107) 07/30/20 07:50 Carbon Dioxide 26 mmol/L (21-32) 07/30/20 07:50 Anion Gap 6 MMOL/L (8-16) L 07/30/20 07:50 BUN 11.4 mg/dL (7-18) 07/30/20 07:50 Creatinine 0.9 mg/dL (0.55-1.3) 07/30/20 07:50 Est GFR (CKD-EPI)AfAm 107.97 07/30/20 07:50 Est GFR (CKD-EPI)NonAf 93.16 07/30/20 07:50 Random Glucose 102 mg/dL (74-106) 07/30/20 07:50 Calcium 8.7 mg/dL (8.5-10.1) 07/30/20 07:50 Total Bilirubin 0.5 mg/dL (0.2-1) 07/30/20 07:50 AST 35 U/L (15-37) 07/30/20 07:50 ALT 36 U/L (13-61) 07/30/20 07:50 Alkaline Phosphatase 101 U/L (45-117) 07/30/20 07:50 Total Protein 6.6 g/dl (6.4-8.2) 07/30/20 07:50 Albumin 3.4 g/dl (3.4-5.0) 07/30/20 07:50 Labs noted. Assessment: 07/30/20 12:31 AOX3, in no acute respiratory distress. Full ROM, ambulating in the unit. Withdrawal symptoms. Plan: continue detox.
--- NOTE | 2020-07-30 15:38 | CONSULT ---
[facility] Psychiatric Consult - Data Date of interview: 07/30/20 Admission source: [facility] Identifying data: Revisit to [facility] and admission to [address] [place] [address] for this 60 y/o male, a kaw of [facility], self-referred for detoxification treatment. RUBI issues (as per self-report) : alcohol, cocaine. Patient is , father of one (has a 27 y/o daughter residing in [place]), homeless, unemployed and supported on welfare. Substance Abuse History: Discussed with the patient. RUBI profile as follows : Smoking history: Former smoker. Have you smoked in the past 12 months: No. Hx Chewing Tobacco Use: No. Initiated information on smoking cessation: No. - Substance & Tx. History. Hx Alcohol Use: Yes. Hx Substance Use: Yes. Substance Use Type: Alcohol, Cocaine. Hx Substance Use Treatment: Yes ([facility]). - Substances abused. Alcohol. Substance route: Oral. Frequency: Daily. Amount used: 5 pints of vodka and 10 bottles of 40oz. beer. Age of first use: 20. Date of last use: 07/28/20. Known history of multiple RUBI treatment failur es. Medical History: Patient endorses good general health. Noted history of poliomyelitis (ambulates with a limp). Psychiatric History: Patient reports a history of two psychiatric hospitalizations ([facility] + [facility]). Diagnosed with MDD and Anxiety Disorder. Mr Dobbs indicates that, due to administrative restrictions during the COVID-19 pandemic, he has not been able to maintain OPD care at the [facility] mental health clinic. Off his psychotropic medications (trazodone + lexapro) for several weeks. Patient reports a remote history of suicide attempt (overdose with pills) years ago. Physical/Sexual Abuse/Trauma History: Patient denies history of abuse. Additional Comment: Urine drug screen results: JOE-Cocaine, BAR-Barbiturates, BZO-Benzodiazepines. Noted. Mental Status Exam - Mental Status Exam Alert and Oriented to: Time, Place, Person Cognitive Function: Good Patient Appearance: Disheveled Mood: Withdrawn, Hopeful Affect: Appropriate, Normal Range Patient Behavior: Fatigued, Appropriate, Cooperative (friendly) Speech Pattern: Clear, Appropriate Voice Loudness: Normal Thought Process: Intact, Goal Oriented Thought Disorder: Not Present Hallucinations: Denies Suicidal Ideation: Denies Homicidal Ideation: Denies Insight/Judgement: Poor Sleep: Poorly, Difficulty falling asleep Appetite: Good Gait/Station: Other (walks with a limp) Psychiatric Findings - Problem List ([place] 1, 2,3) (1) Alcohol dependence with uncomplicated withdrawal Current Visit: Yes Status: Acute (2) Cocaine dependence Current Visit: Yes Status: Chronic Qualifiers: Substance use status: uncomplicated Qualified Code(s): F14.20 - Cocaine dependence, uncomplicated (3) Drug-induced mood disorder Current Visit: Yes Status: Chronic (4) History of depression Current Visit: Yes Status: Chronic (5) Insomnia Current Visit: Yes Status: Chronic (6) Non-compliance Current Visit: Yes Status: Chronic Comment: Patient admits to chronic non- adherence to medications. - Initial Treatment Plan Initial Treatment Plan: Psychoeducation. Support. MAT-ETOH interventions revisited with the patient (vivitrol, acamprosate). Motivational counseling. Detoxification in progress. At patient's request, will resume trazodone 50 mg po hs. Side effects/benefits discussed (patient is made aware of potential for priapism). Granted consent (verbal) to MD. Briggs.
[2020-07-30] MEDS: MELATONIN 5 MG TABLETS PO SCH (23:06)
[2020-07-30] MEDS: THIAMINE HCL 100 MG TABLET (FP) PO SCH (23:06)
[2020-07-30] MEDS: traZODone HCL 50 MG TABLET (FP) PO SCH (23:06)
[2020-07-31] MEDS: chlordiazePOXIDE HCL 25 MG CAPSULE PO SCH ×4 (07:22→22:53)
[2020-07-31] MEDS: ARTIFICIAL TEARS (POLYVINYL ALCOHOL) OPTH DROPS OU SCH ×2 (09:21→22:52)
--- NOTE | 2020-07-31 09:22 | PN ---
S CIWA - CIWA Score Nausea/Vomitin-Mild Nausea/No Vomiting Muscle Tremors: 2 Anxiety: 2 Agitation: 0-Normal Activity Paroxysmal Sweats: No Perspiration Orientation: 0-Oriented Tacttile Disturbances: 1-Very Mild Itch/Numbness Auditory Disturbances: 0-None Visual Disturbances: 2-Mild Sensitivity Headache: 2-Mild CIWA-Ar Total Score: 10 BHS Progress Note (SOAP) Subjective: 60 years old male was admitted on 07/29/20 for alcohol withdrawal sx management treating with librium detox regiment seen by psychiatrist hernán streeter mr salter requests his eye drops chart reviewed mr salter will receive his medication today right eye sclera redness spider shape no exudates denies pain denies alteration in vision none tender postorbital palpation continue artificial tears drops Objective: 07/31/20 09:21 Vital Signs - 24 hr 07/30/20 07/30/20 07/30/20 16:52 21:16 23:15 Temperature 98.2 F 99.6 F 99.6 F Pulse Rate 83 86 86 Respiratory 18 18 18 Rate Blood Pressure 107/61 134/77 134/77 O2 Sat by Pulse 97 97 Oximetry (%) 07/31/20 07:10 Temperature 97.1 F L Pulse Rate 104 H Respiratory 18 Rate Blood Pressure 138/91 O2 Sat by Pulse 97 Oximetry (%) Laboratory Tests 07/30/20 07/30/20 07/30/20 07:50 07:50 07:50 WBC 6.9 RBC 3.46 L Hgb 11.7 Hct 34.5 L MCV 99.7 H MCH 33.8 H MCHC 33.9 RDW 15.5 Plt Count 222 MPV 8.8 Sodium 137 Potassium 4.1 Chloride 105 Carbon Dioxide 26 Anion Gap 6 L BUN 11.4 Creatinine 0.9 Est GFR (CKD-EPI)AfAm 107.97 Est GFR (CKD-EPI)NonAf 93.16 Random Glucose 102 Calcium 8.7 Total Bilirubin 0.5 AST 35 ALT 36 Alkaline Phosphatase 101 Total Protein 6.6 Albumin 3.4 Syphilis Serology Non-reactive 07/31/20 09:22 covid pending Assessment: 07/31/20 09:22 alcohol withdrawal Plan: librium regiment
[2020-07-31] MEDS: PRENATAL VITAMINS W/ FOLIC ACID TABLET (FP) PO SCH (10:40)
--- NOTE | 2020-07-31 15:11 | EKG ---
Test Reason : Blood Pressure : / mmHG Vent. Rate : 078 BPM Atrial Rate : 078 BPM P-R Int : 146 ms QRS Dur : 084 ms QT Int : 374 ms P-R-T Axes : 079 067 072 degrees QTc Int : 426 ms NORMAL SINUS RHYTHM NORMAL ECG WHEN COMPARED WITH ECG OF 27-MAY-2018 15:40, NO SIGNIFICANT CHANGE WAS FOUND Confirmed by MD Eugene Daniel ([id number]) on 07/31/2020 3:11:11 PM Referred By: Surendra Munson Confirmed By:Houston Eugene MD
[2020-07-31] MEDS: METHOCARBAMOL 500 MG TABLET PO PRN (17:10)
[2020-07-31] MEDS: THIAMINE HCL 100 MG TABLET (FP) PO SCH (22:52)
[2020-07-31] MEDS: MELATONIN 5 MG TABLETS PO SCH (22:52)
[2020-07-31] MEDS: traZODone HCL 50 MG TABLET (FP) PO SCH (22:53)
[2020-08-01] MEDS ORDERED: chlordiazePOXIDE HCL 10 MG CAPSULE PO PRN
[2020-08-01] MEDS: chlordiazePOXIDE HCL 10 MG CAPSULE PO SCH ×2 (06:55→10:15)
[2020-08-01] MEDS: ARTIFICIAL TEARS (POLYVINYL ALCOHOL) OPTH DROPS OU SCH (09:53)
[2020-08-01] MEDS: PRENATAL VITAMINS W/ FOLIC ACID TABLET (FP) PO SCH (10:15)
[2020-08-01] MEDS ORDERED: MASKS NR ONE (12:12)
[2020-08-01 14:02] VITALS: BP 111/75; PULSE 66; TEMP 97
--- NOTE | 2020-08-01 14:55 | DS ---
[facility] Detox Discharge Summary Admission Date: 07/29/20 Discharge Date: 08/01/20 - History Present History: Alcohol Dependence Additional Comments: 60 years old male was admitted on 07/29/20 for alcohol withdrawal sx management treated with librium detox regiment mr salter insists to leave the detox today instead of 08/03/20 mr salter wants to go to [facility] case discussed with the counselor material sent to [facility] mr salter ate lunch and showered and insists to leave detox to [facility] mr salter is alert oriented x 3 speech clearly coherently ambulating with steady gaits General Appearance: Yes: no Distress, mild Tremorous, no Sweating, mild Anxious HEENTM: Yes: Within Normal Limits Respiratory: Yes: Lungs Clear, Normal Breath Sounds, No Respiratory Distress Neck: Yes: Within Normal Limits Breast: Yes: Breast Exam Deferred Cardiology: Yes: Regular Rhythm, Regular Rate Abdominal: Yes: Normal Bowel Sounds, Soft Genitourinary: Yes: Within Normal Limits Back: Yes: Normal Inspection Musculoskeletal: Yes: Back pain, Other (right knne pain) Extremities: Yes: Tremors Integumentary: Yes: Within Normal Limits Lymphatic: Yes: Within Normal Limits Pertinent Past History: time for discharge 47 minutes treatment team met with mr salter to discuss the benefits of librium completion mr salter states that he feels better and no need for taking the medication for alcohol - Physical Exam Results Vital Signs: Vital Signs Temperature 97 F L 08/01/20 14:01 Pulse Rate 66 08/01/20 14:01 Respiratory Rate 20 08/01/20 14:01 Blood Pressure 111/75 08/01/20 14:01 O2 Sat by Pulse Oximetry (%) 99 08/01/20 14:01 Pertinent Admission Physical Exam Findings: alcohol withdrawal Laboratory Tests 07/30/20 07/30/20 07/30/20 07:50 07:50 07:50 WBC 6.9 RBC 3.46 L Hgb 11.7 Hct 34.5 L MCV 99.7 H MCH 33.8 H MCHC 33.9 RDW 15.5 Plt Count 222 MPV 8.8 Sodium 137 Potassium 4.1 Chloride 105 Carbon Dioxide 26 Anion Gap 6 L BUN 11.4 Creatinine 0.9 Est GFR (CKD-EPI)AfAm 107.97 Est GFR (CKD-EPI)NonAf 93.16 Random Glucose 102 Calcium 8.7 Total Bilirubin 0.5 AST 35 ALT 36 Alkaline Phosphatase 101 Total Protein 6.6 Albumin 3.4 Syphilis Serology Non-reactive COVID-19 (TRA) 07/30/20 08:20 WBC RBC Hgb Hct MCV MCH MCHC RDW Plt Count MPV Sodium Potassium Chloride Carbon Dioxide Anion Gap BUN Creatinine Est GFR (CKD-EPI)AfAm Est GFR (CKD-EPI)NonAf Random Glucose Calcium Total Bilirubin AST ALT Alkaline Phosphatase Total Protein Albumin Syphilis Serology COVID-19 (TRA) Not detected lab noted - Treatment Hospital Course: Detox Protocol Followed, Detoxed Safely, Responded well, Discharged Condition Good, Rehab Referral Accepted Patient has Accepted a Rehab Referral to: [facility] - Medication Discharge Medications: Ambulatory Orders traZODone HCL [Desyrel -] 50 mg PO HS #30 tablet 01/17/16 Escitalopram Oxalate [Lexapro -] 20 mg PO DAILY #30 tablet 02/15/16 - Diagnosis (1) Substance induced mood disorder Current Visit: Yes Status: Suspected (2) Alcohol dependence with uncomplicated withdrawal Current Visit: Yes Status: Acute (3) Positive PPD, treated Current Visit: Yes Status: Suspected (4) Nicotine dependence Current Visit: Yes Status: Acute Qualifiers: Nicotine product type: cigarettes Substance use status: in withdrawal Qualified Code(s): F17.213 - Nicotine dependence, cigarettes, with withdrawal - AMA Did Patient Leave Against Medical Advice: No CIWA Score - CIWA Score Nausea/Vomitin-No Nausea/No Vomiting Muscle Tremors: 2 Anxiety: 1-Mildly Anxious Agitation: 0-Normal Activity Paroxysmal Sweats: No Perspiration Orientation: 0-Oriented Tacttile Disturbances: 0-None Auditory Disturbances: 0-None Visual Disturbances: 1-Very Mild Sensitivity Headache: 1-Very Mild CIWA-Ar Total Score: 5
[2020-08-02] MEDS ORDERED: chlordiazePOXIDE HCL 10 MG CAPSULE PO SCH (05:00)
[2020-08-03] MEDS ORDERED: chlordiazePOXIDE HCL 10 MG CAPSULE PO ONE (05:00)
== END 2020-08-01 15:04 | disposition home or self-care (01) | DRG 774 ==
LOC: YASAS 18:23 → Y3N 22:50
PROVIDERS: ADMIT Allergy & Immunology; ATTEND Allergy & Immunology
PROC: HZ2ZZZZ Detoxification Services for Substance Abuse Treatment (ICD-10-PCS; principal; 2020-07-29)
DX: F10.230 Alcohol dependence with withdrawal, uncomplicated (principal); F14.20 Cocaine dependence, uncomplicated; F17.213 Nicotine dependence, cigarettes, with withdrawal; F19.24 Other psychoactive substance dependence with psychoactive substance-induced mood disorder; F34.1 Dysthymic disorder; F41.9 Anxiety disorder, unspecified; G47.00 Insomnia, unspecified; L85.3 Xerosis cutis; R76.11 Nonspecific reaction to tuberculin skin test without active tuberculosis; R26.89 Other abnormalities of gait and mobility; Z86.12 Personal history of poliomyelitis; Z91.14 Patient's other noncompliance with medication regimen; Z56.0 Unemployment, unspecified; Z59.0 Homelessness
CPT/HCPCS: 36415; 71046-TC-FY; 80053; 85027; 86780; 93005; 93010; U0003

== ENCOUNTER 2023-09-20 14:28 | Inpatient (IN) | payer OTHER ==
[2023-09-20 15:15] VITALS: BMI 21.7
[2023-09-20] MEDS ORDERED: LOPERAMIDE HCL 2 MG CAPSULE PO PRN (18:35)
[2023-09-20] MEDS ORDERED: MAG HYDROX/AL HYDROX/SIMETH 30 ML UNIT-DOSE CUP PO PRN (18:35)
[2023-09-20] MEDS ORDERED: BENZOCAINE/MENTHOL (CHLORASEPTIC ) LOZENGE MM PRN (18:35)
[2023-09-20] MEDS ORDERED: guaiFENesin 600 MG TABLET.ER (FP) PO PRN (18:35)
[2023-09-20] MEDS ORDERED: BISMUTH SUBSALICYLATE 524 MG/30 ML PO PRN (18:35)
[2023-09-20] MEDS ORDERED: DICYCLOMINE HCL 10 MG CAPSULE PO PRN (18:35)
[2023-09-20] MEDS ORDERED: P-EPHED 60MG/TRIPROLIDI 2.5MG TABLET PO PRN (18:35)
[2023-09-20] MEDS ORDERED: ONDANSETRON *ODT* 4 MG TABLET SL PRN (18:35)
[2023-09-20] MEDS ORDERED: BENZONATATE 200 MG CAPSULE PO PRN (18:35)
[2023-09-20] MEDS ORDERED: MAGNESIUM HYDROX 2400MG/30ML ORAL SUSPENSION 30 ML CUP PO PRN (18:35)
[2023-09-20] MEDS ORDERED: POLYETHYLENE GLYCOL (HEALTHYLAX) 3350 17 GM PACKET PO PRN (18:35)
[2023-09-20] MEDS ORDERED: MELATONIN 5 MG TABLETS PO SCH (22:00)
[2023-09-20] MEDS: THIAMINE HCL 100 MG TABLET (FP) PO SCH (23:07)
[2023-09-21 09:03] LABS: HEMATOCRIT 35.6 % (35.4-49); HEMOGLOBIN 12.1 GM/dL (11.7-16.9); MCH 32.6 pg (25.7-33.7); MEAN PLT VOLUME 8.1 fl (7.5-11.1); PLATELET COUNT 320 10^3/uL (134-434); RBC 3.71 M/mm3 (4.00-5.60); RDW 13.5 % (11.9-15.9); WHITE BLOOD COUNT 2.8 K/mm3 (4.0-10.0)
[2023-09-21 09:12] LABS: CHLORIDE 107 mmol/L (98-107); POTASSIUM 3.9 mmol/L (3.5-5.1); SODIUM 140 mmol/L (136-145)
[2023-09-21 09:42] LABS: ALBUMIN 3.4 g/dl (3.4-5.0)
[2023-09-21 09:43] LABS: BLOOD UREA NITROGEN 15.7 mg/dL (7-18); CALCIUM 8.6 mg/dL (8.5-10.1)
[2023-09-21 09:44] LABS: ANION GAP 9 mmol/L (4-13); CO2 24 mmol/L (21-32); GLUCOSE,RANDOM 91 mg/dL (74-106)
[2023-09-21 09:45] LABS: CREATININE 0.8 mg/dL (0.55-1.3); SGOT/AST 34 U/L (15-37)
[2023-09-21 09:46] LABS: SGPT/ALT 27 U/L (13-61); TOT PROT 6.3 g/dl (6.4-8.2)
[2023-09-21 09:47] LABS: ALK PHOS 104 U/L (45-117); BILIRUBIN,TOTAL 0.6 mg/dL (0.2-1)
[2023-09-21] MEDS: PRENATAL VITAMINS W/ FOLIC ACID TABLET (FP) PO SCH (10:57)
[2023-09-21] MEDS: LITHIUM CARBONATE 150 MG CAPSULE PO SCH (12:29)
[2023-09-21] MEDS: hydrOXYzine PAMOATE 25 MG CAPSULE (FP) PO PRN (16:28)
[2023-09-21] MEDS: METHOCARBAMOL 500 MG TABLET PO PRN (16:29)
[2023-09-21] MEDS: QUEtiapine FUMARATE 50 MG TABLET PO SCH (22:08)
[2023-09-21] MEDS: THIAMINE HCL 100 MG TABLET (FP) PO SCH (22:08)
[2023-09-22] MEDS: PRENATAL VITAMINS W/ FOLIC ACID TABLET (FP) PO SCH (10:35)
[2023-09-22] MEDS: LITHIUM CARBONATE 150 MG CAPSULE PO SCH (10:36)
[2023-09-22] MEDS: QUEtiapine FUMARATE 50 MG TABLET PO SCH (22:14)
[2023-09-22] MEDS: THIAMINE HCL 100 MG TABLET (FP) PO SCH (22:14)
[2023-09-22] MEDS: METHOCARBAMOL 500 MG TABLET PO PRN (22:15)
[2023-09-23] MEDS: ACETAMINOPHEN 325 MG TABLET (FP) PO PRN ×2 (00:03→07:37)
[2023-09-23] MEDS: hydrOXYzine PAMOATE 25 MG CAPSULE (FP) PO PRN (00:03)
[2023-09-23] MEDS: METHOCARBAMOL 500 MG TABLET PO PRN (07:37)
[2023-09-23 09:05] VITALS: BP 115/83; PULSE 93; RESP 18; TEMP 98.3
[2023-09-23] MEDS: LITHIUM CARBONATE 150 MG CAPSULE PO SCH (09:27)
[2023-09-23] MEDS: PRENATAL VITAMINS W/ FOLIC ACID TABLET (FP) PO SCH (09:27)
== END 2023-09-23 10:15 | disposition home or self-care (01) | DRG 774 ==
LOC: YASAS 14:28 → Y6N 18:39
PROVIDERS: ADMIT Allergy & Immunology; ATTEND Surgery
PROC: HZ2ZZZZ Detoxification Services for Substance Abuse Treatment (ICD-10-PCS; principal; 2023-09-20)
DX: F10.230 Alcohol dependence with withdrawal, uncomplicated (principal); F14.20 Cocaine dependence, uncomplicated; F31.70 Bipolar disorder, currently in remission, most recent episode unspecified; F19.24 Other psychoactive substance dependence with psychoactive substance-induced mood disorder; F39 Unspecified mood [affective] disorder; D72.819 Decreased white blood cell count, unspecified; R76.11 Nonspecific reaction to tuberculin skin test without active tuberculosis
CPT/HCPCS: 36415; 80053; 80178; 80307; 85027; 86780; 87635

== ENCOUNTER 2024-03-04 19:14 | Inpatient (IN) | payer OTHER ==
[2024-03-04 21:21] VITALS: BMI 22.9
[2024-03-04] MEDS ORDERED: MAGNESIUM HYDROX 2400MG/30ML ORAL SUSPENSION 30 ML CUP PO PRN (22:31)
[2024-03-04] MEDS ORDERED: POLYETHYLENE GLYCOL (HEALTHYLAX) 3350 17 GM PACKET PO PRN (22:31)
[2024-03-04] MEDS ORDERED: METHOCARBAMOL 500 MG TABLET PO PRN (22:31)
[2024-03-04] MEDS ORDERED: ACETAMINOPHEN 325 MG TABLET (FP) PO PRN (22:31)
[2024-03-04] MEDS ORDERED: P-EPHED 60MG/TRIPROLIDI 2.5MG TABLET PO PRN (22:31)
[2024-03-04] MEDS ORDERED: MAG HYDROX/AL HYDROX/SIMETH 30 ML UNIT-DOSE CUP PO PRN (22:31)
[2024-03-04] MEDS ORDERED: IBUPROFEN 400 MG TABLET (FP) PO PRN (22:31)
[2024-03-04] MEDS ORDERED: BENZOCAINE/MENTHOL (CHLORASEPTIC ) LOZENGE MM PRN (22:31)
[2024-03-04] MEDS ORDERED: BISMUTH SUBSALICYLATE 524 MG/30 ML PO PRN (22:31)
[2024-03-04] MEDS ORDERED: DICYCLOMINE HCL 10 MG CAPSULE PO PRN (22:31)
[2024-03-04] MEDS ORDERED: BENZONATATE 200 MG CAPSULE PO PRN (22:31)
[2024-03-04] MEDS ORDERED: IBUPROFEN 600 MG TABLET (FP) PO PRN (22:31)
[2024-03-04] MEDS ORDERED: LOPERAMIDE HCL 2 MG CAPSULE PO PRN (22:31)
[2024-03-04] MEDS ORDERED: ONDANSETRON *ODT* 4 MG TABLET SL PRN (22:31)
[2024-03-04] MEDS ORDERED: guaiFENesin 600 MG TABLET.ER (FP) PO PRN (22:31)
[2024-03-04] MEDS ORDERED: hydrOXYzine PAMOATE 25 MG CAPSULE (FP) PO ONE (23:28)
[2024-03-04] MEDS ORDERED: diazePAM 5 MG TABLET ONE (23:28)
[2024-03-04] MEDS: hydrOXYzine PAMOATE 25 MG CAPSULE (FP) PO PRN (23:33)
[2024-03-04] MEDS: diazePAM 5 MG TABLET PO SCH (23:34)
[2024-03-05] MEDS: METOPROLOL TARTRATE 25 MG TABLET (FP) PO ONE ×2 (02:19→02:21)
[2024-03-05] MEDS: VITAMINS A AND D TOPICAL OINTMENT TP SCH (06:00)
[2024-03-05 08:21] LABS: POTASSIUM 3.8 mmol/L (3.5-5.1)
[2024-03-05 08:24] LABS: CALCIUM 8.8 mg/dL (8.5-10.1)
[2024-03-05 08:25] LABS: ALBUMIN 3.1 g/dl (3.4-5.0); BLOOD UREA NITROGEN 14.5 mg/dL (7-18)
[2024-03-05 08:28] LABS: CREATININE 0.9 mg/dL (0.55-1.3)
[2024-03-05 08:30] LABS: BILIRUBIN,TOTAL 0.5 mg/dL (0.2-1); TOT PROT 6.2 g/dl (6.4-8.2)
[2024-03-05 08:39] LABS: HEMATOCRIT 32.7 % (35.4-49); HEMOGLOBIN 11.3 GM/dL (11.7-16.9); MCH 32.7 pg (25.7-33.7); MCHC 34.5 g/dl (32.0-35.9); MEAN CELL VOLUME 94.8 fl (80-96); MEAN PLT VOLUME 8.9 fl (7.5-11.1); PLATELET COUNT 136 10^3/uL (134-434); RBC 3.45 M/mm3 (4.00-5.60); WHITE BLOOD COUNT 2.3 K/mm3 (4.0-10.0)
[2024-03-05] MEDS: PRENATAL VITAMINS W/ FOLIC ACID TABLET (FP) PO SCH (10:39)
[2024-03-05] MEDS: MELATONIN 5 MG TABLETS PO SCH (22:37)
[2024-03-05] MEDS: QUEtiapine FUMARATE 100 MG TABLET (FP) PO SCH (22:38)
[2024-03-05] MEDS: THIAMINE 100 MG TABLET PO SCH (22:38)
[2024-03-06] MEDS: diazePAM 5 MG TABLET PO SCH (05:33)
[2024-03-06] MEDS: diazePAM 5 MG TABLET PO PRN (06:21)
[2024-03-06 09:17] VITALS: BP 135/90; PULSE 99; RESP 19; TEMP 97.3
[2024-03-07] MEDS ORDERED: diazePAM 5 MG TABLET PO SCH (06:00)
[2024-03-08] MEDS ORDERED: diazePAM 5 MG TABLET PO ONE (06:00)
== END 2024-03-06 09:27 | disposition left against medical advice (07) | DRG 770 ==
LOC: YASAS 19:14 → Y3N 23:00
PROVIDERS: ADMIT Allergy & Immunology; ATTEND Surgery
PROC: HZ2ZZZZ Detoxification Services for Substance Abuse Treatment (ICD-10-PCS; principal; 2024-03-04)
DX: F10.230 Alcohol dependence with withdrawal, uncomplicated (principal); F14.20 Cocaine dependence, uncomplicated; F31.9 Bipolar disorder, unspecified; F19.24 Other psychoactive substance dependence with psychoactive substance-induced mood disorder; G47.00 Insomnia, unspecified; Z87.891 Personal history of nicotine dependence; Z91.199 Patient's noncompliance with other medical treatment and regimen due to unspecified reason
CPT/HCPCS: 36415; 80053; 80178; 80305; 80307; 85027; 86780; 93005; 93010